=== PATIENT | female | born 1995 | race Caucasian/White ===

== ENCOUNTER 2017-12-13 10:30 | Inpatient (IN) | payer BC, MEDICAID, SELFPAY ==
[2017-12-13] VITALS (12 sets, daily range): BP systolic 120–148; BP diastolic 74–100; PULSE 71–94; RESP 14–18; TEMP 36.6–37.3; O2SAT 96–99; BMI 29.0
[2017-12-13] MEDS: Lactated Ringers 1,000 ML 50 ML IV ×2 (11:26→14:09)
[2017-12-13 11:39] LABS: Hematocrit 37.4 % (37-47); Hemoglobin 12.9 g/dl (12.0-15.0); Mean Corp Hgb Conc 34.5 g/gl (32-36); Mean Corpuscular Hgb 32.3 pg (27.0-32.0); Mean Corpuscular Volume 93.7 fL (81-99); Mean Platelet Vol. 11.4 fl (6.2-12.0); Platelet Count 149 K/mm3 (150-450); RBC Distribution Width CV 15.3 % (11.6-14.6); RBC Distribution Width SD 50.8 fl (35.1-43.9); Red Blood Count 3.99 M/mm3 (4.2-5.4); White Blood Count 8.5 K/mm3 (4.4-11.0)
[2017-12-13 11:40] LABS: Scan Indicated on CBC? Y/N NO
[2017-12-13] MEDS: Oxytocin 30 units/NS 500 ml 30 UNITS/500 ML IV.SOLN IV (12:48)
--- NOTE | 2017-12-13 13:11 | PCM.HP.OB ---
History Date of Admission: 12/13/17 Final JOSE DANIEL: 12/09/17 Final JOSE DANIEL Source: US <20 weeks Gestational age: 40 Weeks and 4 Days History of this : This is a 22 year-old, at 40.4 weeks gestational age presented to [facility] office this morning c/o no movement since awaking. pt reports no vaginal bleeding but reports woke up with damp underwear and having yellow discharge. on NST in office FHR 155-160 mod variability with no decels and no accels. Speculum exam with Grossly ruptured membranes and thick meconium noted. pt was counseled on IOL- consented and was told to go directly to [facility]. Allergies No Known Allergies Allergy (Verified 12/13/17 11:44) Home Medications: Home Medications Sertraline HCl [Zoloft] 50 mg PO DAILY 05/24/17 Ferrous Sulfate [Iron] 325 mg PO DAILY 12/13/17 Omeprazole Magnesium [Prilosec Otc] 20 mg PO DAILY 12/13/17 Smoking Status: Former smoker Alcohol: None Number of Fetus(es): 1 Heart Tracin mod to min variability - no accels, occasional variable decleration- CAT 2 FHR TRACING TOCO Analysis: occasional History Past Pregnancies: Past Pregnancies Delivery Date Name GA/Weeks Outcome Route Weight Infant Gender Labor Length Anesthesia Delivery Location Provider FOB Review of Systems Constitutional: Denies: Chills, Fever Gastrointestinal: Denies: Abdominal Pain Physical Exam General: Alert, Oriented x3 Abdomen: Soft, Non Tender, Gravid Neurological: Cranial nerves II-XII grossly intact MANAGER INFRASTRUCTURE: Normal external genitalia Estimated gestational size: Appropriate for gestational size Presentation: Cephalic Cervix Dilation (cm): 2.5 Station: -2 Effacement (%): 90 Assessment/Plan This is a 22 year-old, @ 40.4 weeks gestational age with Category 2 FHR, SROM at home- thick meconium and decreased FM 1) admit to L&D 2) Internal monitors placed 3) Pitocin- for PROGRAM DIRECTOR/MORNING SHOW HOST- if fetus does not tolerate i have reviewed possible need for primary cs 4) GBS + on PCN for prophylaxis 5) epidural if requested
--- NOTE | 2017-12-13 13:16 | HP.PCM_ITS ---
History Date of Admission: 12/13/17 Final JOSE DANIEL: 12/09/17 Final JOSE DANIEL Source: US <20 weeks Gestational age: 40 Weeks and 4 Days History of this : This is a 22 year-old, at 40.4 weeks gestational age presented to [facility] office this morning c/o no movement since awaking. pt reports no vaginal bleeding but reports woke up with damp underwear and having yellow discharge. on NST in office FHR 155-160 mod variability with no decels and no accels. Speculum exam with Grossly ruptured membranes and thick meconium noted. pt was counseled on IOL- consented and was told to go directly to [facility]. Allergies No Known Allergies Allergy (Verified 12/13/17 11:44) Home Medications: Home Medications Sertraline HCl [Zoloft] 50 mg PO DAILY 05/24/17 Ferrous Sulfate [Iron] 325 mg PO DAILY 12/13/17 Omeprazole Magnesium [Prilosec Otc] 20 mg PO DAILY 12/13/17 Smoking Status: Former smoker Alcohol: None Number of Fetus(es): 1 Heart Tracin mod to min variability - no accels, occasional variable decleration- CAT 2 FHR TRACING TOCO Analysis: occasional History Past Pregnancies: Past Pregnancies Delivery Date Name GA/Weeks Outcome Route Weight Infant Gender Labor Length Anesthesia Delivery Location Provider FOB Review of Systems Constitutional: Denies: Chills, Fever Gastrointestinal: Denies: Abdominal Pain Physical Exam General: Alert, Oriented x3 Abdomen: Soft, Non Tender, Gravid Neurological: Cranial nerves II-XII grossly intact CLIENT SUPPORT MANAGER: Normal external genitalia Estimated gestational size: Appropriate for gestational size Presentation: Cephalic Cervix Dilation (cm): 2.5 Station: -2 Effacement (%): 90 Assessment/Plan This is a 22 year-old, @ 40.4 weeks gestational age with Category 2 FHR, SROM at home- thick meconium and decreased FM 1) admit to L&D 2) Internal monitors placed 3) Pitocin- for RESPIRATORY MANAGER- if fetus does not tolerate i have reviewed possible need for primary cs 4) GBS + on PCN for prophylaxis 5) epidural if requested
[2017-12-13] MEDS: fentaNYL-bupivacaine (epidural) 100 ML BAG EPIDURAL (14:11)
[2017-12-13] MEDS: Ondansetron 4 MG/2 ML Vial IV (16:32)
[2017-12-13 16:34] LABS: Protein, Urine (Random) 82.5 mg/dL (<11.9); Protein:Creat Ratio 955 mg/g CRE (0-200)
[2017-12-13 16:38] LABS: AST(SGOT) 18 U/L (15-37); Alanine Aminotransfer ALT/SGPT 11 U/L (13-56); Creatinine, Serum 0.52 mg/dL (0.55-1.02); EST Glomerular Filtration Rate 153 mL/min (>60); Est Glom Filt Rate - Afr Amer 185 mL/min (>60); Estimated Creatinine Clearance 162.23 ml/min; Uric Acid 2.9 mg/dL (2.6-6.0)
[2017-12-13 16:44] LABS: Hemoglobin 12.5 g/dl (12.0-15.0); Mean Corp Hgb Conc 32.9 g/gl (32-36); Mean Corpuscular Volume 94.3 fL (81-99); Mean Platelet Vol. 12.2 fl (6.2-12.0); Platelet Count 151 K/mm3 (150-450); RBC Distribution Width CV 15.4 % (11.6-14.6); RBC Distribution Width SD 53.6 fl (35.1-43.9); Red Blood Count 4.03 M/mm3 (4.2-5.4); White Blood Count 10.8 K/mm3 (4.4-11.0)
[2017-12-13 16:46] LABS: Scan Indicated on CBC? Y/N NO
[2017-12-13 17:18] LABS: International Normalized Ratio 0.9; Prothrombin Time (Protime)PT. 12.3 SECONDS (11.7-14.9)
[2017-12-13 17:19] LABS: Partial Thromboplast Time 28.1 Seconds (24.1-36.2)
--- NOTE | 2017-12-13 17:30 | PCM.PN.BLA ---
Progress Note pt evaluated at bedside- VE: 4-5/90/-2 , PRE E LABS reviewed- elevated Prot/creat ratio and elevated BPs since arrival- FHR persistent category 2 tracing with minimal variability, occasional variable decelerations. unable to keep pitocin on- pt and were counseled on primary cs risks and agree to proceed. reviewed that with persistent category 2 tracing despite maternal position changes, oxygen and being remote from delivery i feel this is in her best interest at this time. OR team notified.
--- NOTE | 2017-12-13 17:34 | PN_ITS ---
Progress Note pt evaluated at bedside- VE: 4-5/90/-2 , PRE E LABS reviewed- elevated Prot/ creat ratio and elevated BPs since arrival- FHR persistent category 2 tracing with minimal variability, occasional variable decelerations. unable to keep pitocin on- pt and were counseled on primary cs risks and agree to proceed. reviewed that with persistent category 2 tracing despite maternal position changes, oxygen and being remote from delivery i feel this is in her best interest at this time. OR team notified.
[2017-12-13] MEDS: Sodium Citrate/Citric Acid 30 ML UDC PO (17:35)
[2017-12-13] MEDS: Cefazolin 2 GM in 0.9% Normal Saline 100 ML IV (17:35)
--- NOTE | 2017-12-13 17:38 | PCM.OB.CSR ---
Delivery Classification: LAMONT Final JOSE DANIEL: 12/09/17 Gestational age: 40 Weeks and 4 Days Indications: Persistent category 2 FHR tracing, Preeclampsia without severe features, Meconium fluid, Post EDC, remote from delivery Indications for : Nonreassuring Status Description of Procedure: Surgeon: Dr. Janis Ahn Tower Director: darinel GARCIA Intraop Stat assistance: Dr. Alison Choi Preoperative diagnosis: Persistent Category 2 FHR, preeclampsia without severe features, Meconium, Post EDC- remote from delivery Postoperative diagnosis: same, Live female infant procedure performed: Primary Low Transverse C/S Findings: Primary c/s performed- live female infant born with apgars 2, 6, 8-tight body cord around abdomen x 2 - incision made at 1755 and infant born at 1803. Anesthesia: Epidural converted to General Complications: infant verted to transverse back down during delivery- see note below. Estimated blood loss:800 Implantable devices: None Operative note: After informed consent was obtained the patient was taken the operating room. She was then placed in the supine position. She was prepped and draped in the normal sterile fashion. Epidural Anesthesia was found to be adequate. At this time a Pfannenstiel skin incision was made with a knife was carried down to the underlying layer of the fascia. The fascial incision was then extended laterally using curved Moser scissor. Attention was then turned to the superior aspect of the fascial edge was grasped with 2 straight Andrea clamps tented up and the rectus muscle dissected off sharply using curved Moser scissor. Attention was then turned to the inferior aspect where again Andrea clamps were placed on fascia and the rectus muscles were tented up and the fascia was dissected off sharply using the curved Moser scissor. Rectus muscles were then in the midline bluntly and peritoneum was entered bluntly. Gentle opposing traction was placed. At this time the vesicouterine peritoneum was identified. Scalpel was used to make a uterine incision in a low transverse fashion. The uterus was then entered bluntly gentle opposing traction was placed to extend this incision. Infant head was brought to uterine incision but difficult to deliver- pt not relaxed and was in pain during this time- general anesthesia was initiated- at this time uterine incision was extended and the rectus muscle was cut due how tight she was - i released pressure on head to be able to better extend incision when i did this the infant rotated to transverse back down with head in maternal right. At this time i was unable to get presenting part for delivery- left shoulder was palpable- unable to vert to breach either- emergent assistance was called to help with delivery- Dr. Choi entered the room 1800- again uterine incision was extended cephalad along with tight rectus muscles. 's head was brought back to vertex with flexion and gentle pressure. it was then delivered through uterine incision. upon extending incisions was lacerated on left upper arm- superficial. Cord was clamped and cut was handed to the waiting nursery team. The Placenta was removed from the uterus. The uterus was then removed from the abdominal cavity. The uterus was cleared of all clots and debris using a lap. There was NO SIGNIFICANT EXTENSION OF THE UTERINE INCISION CEPHALAD noted during repair. At this time the uterine incision was reapproximated using #1 Vicryl in a running locked fashion followed by a second layer using #1 vicryl. Hemostasis was appreciated. Posterior cul-de-sac was then cleared of all clots and debris. Uterus was placed back in the abdominal cavity. Gutters were cleared of all clots and debris. Uterine incision was reevaluated and noted to be of excellent hemostasis. At this time the peritoneum was grasped with Kellys reapproximated using #2 Vicryl suture in a running fashion. Ligated rectus Muscles then reapproximated using #2 Vicryl in a interrupted mattress suture fashion. Unable to reapproximate all rectus muscles due to how deperated they were midline. Fascia was then reapproximated using #1 Vicryl in a running fashion. Subcu layer was reapproximated with #2 0 plain gut suture in an interrupted fashion. Subcu layer was closed using 4-0 vicryl on a Charles needle in a subcu fashion. Dry sterile dressing was applied. Instrument lap needle count correct ?2. Anticipated normal postoperative. THIS PATIENT IS STILL A CANDIDATE FOR TOLAC with future pregnancies if desired. Amniotic Membrane Rupture Type: Spontaneous Amniotic Fluid Description: Thick meconium Placenta Disposition: Routine to Lab Specimen(s) sent to pathology: placenta Drain: García to straight drain Cord Entanglement: - - around BODY (abdomen) tight x 2 Nuchal Cord Compression: With compression Cord Vessel Description: 3 Vessels Esitmated Blood Loss (ml): 800 Infant Gender: Female (1 minute): 2 (5 minute): 6 - 10min 8 Delayed cord clamping: No Pre-op Antibiotic Given: Ancef 2 grams IV x1 Pt instructed on risks of surgery: Bleeding, Anesthesia Risks, Infection, Injury to surrounding structure(s) including bowel and bladder - Admit VTE Documentation VTE Present on Admission: Yes VTE Mechan Device Prophylaxis: SCD's VTE Pharm Prophylaxis ordered?: Yes
--- NOTE | 2017-12-13 18:00 | PLAC_PTH ---
PATIENT: LORENA CARRASCO LOC: WP U#:[id number] AGE/SX: 22/F ROOM: WP009 RE12/13/[address]: Dr. Janis Ahn, MDDOB: 1995 BED: 1 DIS: 12/16/2017 SPEC #: [id number] RECD: 12/13/17 22:56 STATUS: SCOTT RENETTA #: [id number] GERI: 12/13/17 18:[address]: Janis Ahn DEPT: SURGICAL PATHOLOGY RECD BY: Vini Montero ENTERED: 12/14/17 07:04 SP TYPE: PLACENTA OTHR DR: Dr. Ever Gonzáles MD Tissues: Placenta, NOS Procedures: Surgery Specimen Level V HEADER OPERATION: Primary section PRE-OP DIAGNOSIS: Post term ? persistent category 2 tracing; preeclampsia TISSUE SUBMITTED: Placenta MICROSCOPIC DIAGNOSIS Placenta: Placental disc - third trimester placenta (583 gm). - Focal chronic villitis of unknown etiology. - Focal area of intraparenchymal hemorrhage (0.7 cm in greatest dimension). - Focal increased perivillous and intravillous fibrin deposition. Membranes ? pigment laden macrophages consistent with meconium staining. - Mild chronic inflammation. See comment. Umbilical cord - three blood vessels and no pathologic diagnosis. SJ:gurpreet 12/16/17 COMMENT The significance of chronic inflammation in the membranes is not clear. MICROSCOPIC DESCRIPTION Slides are reviewed. GROSS DESCRIPTION SPECIMEN: PLACENTA / CLINICAL INFORMATION: A. Weight: 3.603 kg B. Gestational Age: 40 weeks C. Sex: Female PLACENTAL WEIGHT (POST FIXATION): 583 gm PLACENTAL DIMENSIONS: 20 x 18 x 3 cm PLACENTAL SHAPE: Usual ovoid PLACENTAL WEIGHT FOR GESTATIONAL AGE: Within 10-99th percentile MEMBRANES ? Present. Partly fragmented A. Insertion: Marginal B. Site of rupture from edge: At edge of placental disc C. Color of membrane: Ruano-greenish consistent with meconium staining. D. Abnormalities: None UMBILICAL CORD - Present A. Color: Ruano-haile B. Insertion: Central C. Length: 45 cm D. Diameter: 1 cm E. Number of vessels: Three F. Abnormalities: None PLACENTAL DISC - Present A. Color of surface: Ruano-haile B. surface abnormalities: None C. Maternal cotyledons: Intact with minimal tears D. Attached retro placental clot: No clot E. Cut surface: Dark red and spongy F. Lesions: Sections reveal a small ruano, indurated lesion measuring 0.7 cm in greatest dimension. G. Separate clot: Absent SECTIONS SUBMITTED: 1. Membrane roll 2. Cord, maternal end 3. Cord, end 4. Placental disc, and maternal surfaces 5. Placental disc, and maternal surfaces 6. Placental disc, and maternal surfaces, lesion SJ:gurpreet 12/15/17 TC:5 CPT: 48223
[2017-12-13] MEDS: Oxytocin 30 units/NS 500 ml 30 UNITS/500 ML IV.SOLN 167 UNITS IV (18:05)
[2017-12-13] MEDS: Lactated Ringers 1,000 ML 100 ML IV (19:00)
[2017-12-13] MEDS: HYDROmorphone 1 MG/ML Syringe IV ×2 (20:38→22:53)
[2017-12-14] MEDS: Ketorolac 30 MG/ML Syringe IV ×4 (00:58→18:31)
[2017-12-14 01:22] VITALS: BP 137/92; PULSE 68; RESP 16; TEMP 37.3; O2SAT 97
[2017-12-14] MEDS: HYDROmorphone 1 MG/ML Syringe IV ×2 (01:32→10:10)
[2017-12-14] MEDS: Cefazolin 2 GM in 0.9% Normal Saline 100 ML IV (01:36)
[2017-12-14 03:20] VITALS: BP 114/77; PULSE 78; RESP 18; TEMP 37.1; O2SAT 99
[2017-12-14 04:56] LABS: Hematocrit 32.7 % (37-47); Hemoglobin 11.3 g/dl (12.0-15.0); Mean Corp Hgb Conc 34.6 g/gl (32-36); Mean Corpuscular Hgb 32.7 pg (27.0-32.0); Mean Corpuscular Volume 94.5 fL (81-99); Mean Platelet Vol. 11.2 fl (6.2-12.0); Platelet Count 142 K/mm3 (150-450); RBC Distribution Width CV 15.2 % (11.6-14.6); RBC Distribution Width SD 50.3 fl (35.1-43.9); Red Blood Count 3.46 M/mm3 (4.2-5.4); Scan Indicated on CBC? Y/N NO; White Blood Count 11.2 K/mm3 (4.4-11.0)
[2017-12-14] MEDS: Lactated Ringers 1,000 ML 100 ML IV (05:24)
[2017-12-14] MEDS: Enoxaparin 40 MG/0.4 ML Syringe SC (06:02)
--- NOTE | 2017-12-14 07:57 | PCM.PN.OB ---
Subjective: pt seen at bedside, doing well. pt reports pain over incision site. denies N/V. Is not passing flatus but tolerated some regular food last night. Jackson is draining well. Baby in [facility] for blood sugar monitoring. - Physical Exam General: Alert, Oriented x3 Abdomen: Soft, Non-Distended, - - funuds firm. dressing intact- small amout of old blood on right side of dressing- outlined in pen with no new active bleeding appreciated. Extremities: No Calf Tenderness Vital Signs Temp Pulse Resp BP Pulse Ox 98.7 F 78 18 114/77 99 12/14/17 03:20 12/14/17 03:20 12/14/17 03:20 12/14/17 03:20 12/14/17 03:20 Oxygen Delivery Method Room Air Weight: 83.9 kg Body Mass Index (BMI) 29.0 Intake and Output for Last 24 Hours 12/12/17 12/13/17 12/14/17 23:59 23:59 23:59 Intake Total 2900 / 2900 600 / 600 Output Total 825 / 825 Balance 2075 / 2075 600 / 600 Laboratory Tests Past 24 Hrs 12/13/17 12/13/17 12/13/17 11:26 11:26 15:48 WBC 8.5 10.8 RBC 3.99 L 4.03 L Hgb 12.9 12.5 Hct 37.4 38.0 MCV 93.7 94.3 MCH 32.3 H 31.0 MCHC 34.5 32.9 RDW 15.3 H 15.4 H RDW Differential 50.8 H 53.6 H Plt Count 149 L 151 MPV 11.4 12.2 H PT INR APTT Creatinine Estim Creat Clear Calc Est GFR (MDRD) Af Amer Est GFR (MDRD) Non-Af Uric Acid AST ALT U Random Total Protein Urine Creatinine Protein/Creatinin Ratio Blood Type O NEGATIVE Antibody Screen NEGATIVE 12/13/17 12/13/17 12/13/17 15:48 15:48 15:48 WBC RBC Hgb Hct MCV MCH MCHC RDW RDW Differential Plt Count MPV PT 12.3 INR 0.9 APTT 28.1 Creatinine 0.52 L Estim Creat Clear Calc 162.23 Est GFR (MDRD) Af Amer 185 Est GFR (MDRD) Non-Af 153 Uric Acid 2.9 AST 18 ALT 11 L U Random Total Protein 82.5 H Urine Creatinine 86.40 Protein/Creatinin Ratio 955 H Blood Type Antibody Screen 12/14/17 04:40 WBC 11.2 H RBC 3.46 L Hgb 11.3 L Hct 32.7 L MCV 94.5 MCH 32.7 H MCHC 34.6 RDW 15.2 H RDW Differential 50.3 H Plt Count 142 L MPV 11.2 PT INR APTT Creatinine Estim Creat Clear Calc Est GFR (MDRD) Af Amer Est GFR (MDRD) Non-Af Uric Acid AST ALT U Random Total Protein Urine Creatinine Protein/Creatinin Ratio Blood Type Antibody Screen Medical Necessity - Tobacco Use Smoking Status: Former smoker Assessment/Plan 22yo POD#1 s/p LAMONT c/s- preeclampsisa without severe features, persistent category 2 FHR tracing, Meconium, POST EDC 1) c/s was reviewed with patient and - need for general anesthesia 2) PEDS monitoring in [facility]- will make further recommendations today 3) Pain mgmt 4) dc jackson later today 5) labs stable 6) monitor BP- stable at this time
[2017-12-14 10:00] VITALS: BP 123/78; PULSE 67; RESP 18; TEMP 37
[2017-12-14] MEDS: 0.9% Saline Lock 10 ML Syringe IV ×2 (11:48→18:31)
[2017-12-14 12:00] VITALS: BP 118/76; PULSE 77; RESP 16; TEMP 36.3
[2017-12-14] MEDS: Acetaminophen 500 MG Tablet 1000 MG PO (14:35)
[2017-12-14 15:50] VITALS: BP 118/74; PULSE 70; RESP 16; TEMP 36.3; O2SAT 100
[2017-12-14] MEDS: oxyCODONE 5 MG Tablet PO ×2 (16:48→22:33)
[2017-12-14] MEDS: Sertraline 100 MG Tablet PO (21:59)
[2017-12-14 22:00] VITALS: BP 121/69; PULSE 87; RESP 16; TEMP 36.6; O2SAT 98
[2017-12-15] VITALS (7 sets, daily range): BP systolic 119–130; BP diastolic 71–83; PULSE 70–101; RESP 16–20; TEMP 36.2–36.8; O2SAT 96–99
[2017-12-15] MEDS: Ibuprofen 600 MG Tablet PO ×2 (00:28→07:48)
[2017-12-15] MEDS: Enoxaparin 40 MG/0.4 ML Syringe SC (06:07)
--- NOTE | 2017-12-15 08:18 | PCM.PN.OB ---
Subjective: pt seen at bedside, doing well. pt reports good pain control. lochia mild. Passing flatus. Feels congested with URI - Physical Exam General: Alert, Oriented x3 Lungs: Wheezes Abdomen: Soft, Non-Distended, Passing Flatus, - - fundus firm, dressing intact- no new saturated areas Extremities: No Calf Tenderness Vital Signs Temp Pulse Resp BP Pulse Ox 97.1 F L 81 16 124/83 H 97 12/15/17 08:00 12/15/17 08:00 12/15/17 08:00 12/15/17 08:00 12/15/17 08:00 Oxygen Delivery Method Room Air Weight: 83.9 kg Body Mass Index (BMI) 29.0 Intake and Output for Last 24 Hours 12/13/17 12/14/17 12/15/17 23:59 23:59 23:59 Intake Total 2900 / 2900 600 / 600 Output Total 825 / 825 2100 / 2100 300 / 300 Balance 2074 / 2074 -1500 / -1500 -300 / -300 Medical Necessity - Tobacco Use Smoking Status: Former smoker Assessment/Plan 22 yo POD#2, doing well routine care pain mgmt ambulation possible dc tomorrow Albuterol aerosol treatment
--- NOTE | 2017-12-15 08:27 | DCINST_ITS ---
Discharge Diet: No Restrictions Discharge Activity: Return to Normal Activity, May Not Drive - for 2 weeks, May not drive while taking narcotic pain medications., May Shower, May Take a Tub Bath - in 7 days. May resume sexual activity in: 4-6 weeks Lifting Restrictions: 20 pounds Additional Activity Instructions:: Nothing in the vagina for 4-6 weeks. You may return to work/school in 6 weeks. Call your doctor if your incision/area has: Continuous Slow Oozing, Sudden Increased Bleeding, Increased Pain/ Swelling, Increased Redness, Foul Smelling Discharge Call your doctor if you observe: Fever of 101 or Higher, Using more than one pad per hour - for 2 hours Suture Line Care: Avoid Pulling/Pushing, Avoid Pinching/Bending Cleanse incision/area with: Keep Dressing Clean & Dry Additional Instructions: If you experience any of the following, contact your healthcare provider. * Bleeding that soaks a pad every hour for 2 hours * Fever 100.4 or higher * Unrelieved incision or abdominal pain * Swelling, redness, discharge or bleeding from your incision or episiotomy site * Your incision begins to separate * Problems urinating (including inability to urinate or burning while urinating) . * Visual changes * Severe headache * Flu-like symptoms * Pain or redness in one of both of your breasts * Pain, warmth, tenderness or swelling in your legs, especially the calf area * Frequent nausea and vomiting * Symptoms of depression or anxiety If you experience any of the following, call 911 or go to the nearest Emergency Room. * Chest pain * Problems breathing * Seizure activity * Partial or complete paralysis of a body part, slurred speech, weakness or drooping of the face, or a sudden inability to walk or hold your balance Allergies/Adverse Reactions: Allergies No Known Allergies Allergy (Verified 12/13/17 11:44) Medications to take at Discharge Sertraline HCl [Zoloft] 50 mg PO DAILY 05/24/17 Ferrous Sulfate [Iron] 325 mg PO DAILY 12/13/17 Ibuprofen [Motrin] 800 mg PO Q8H PRN PRN #30 tab 12/15/17 Oxycodone HCl/Acetaminophen [Percocet 5/325] 1 tablet PO Q6H PRN PRN 7 Days #28 tablet 12/15/17 Senna/Docusate Sodium [Senokot-S] 1 tab PO DAILY PRN #30 tab 12/15/17 SimETHICONE [Mylicon] 80 mg PO PCHS PRN #30 tab 12/15/17 The following prescriptions were given: Oxycodone HCl/Acetaminophen [Percocet 5/325] 1 tablet PO Q6H PRN PRN 7 Days #28 tablet PRN Reason: Pain Ibuprofen [Motrin] 800 mg PO Q8H PRN PRN #30 tab PRN Reason: Pain Senna/Docusate Sodium [Senokot-S] 1 tab PO DAILY PRN #30 tab PRN Reason: Constipation SimETHICONE [Mylicon] 80 mg PO PCHS PRN #30 tab PRN Reason: Indigestion/stomach pain Follow-Up: Call to make an appointment with your doctor for an incision check in 1-2 weeks. You will also need a 6 week post- follow up appointment. Test results from this visit will be discussed in further detail at your follow- up appointment, if applicable. Please Follow Up With: Janis Ahn MD - Call to make an appointment for an incision check in 1-2 [phone] When: You will need a post- check in 6 weeks. Primary Care Physician: Ever Gonzáles MD [Primary Care Provider] -
[2017-12-15] MEDS: Albuterol 2.5 MG/3 ML VIAL.NEB. INHALATION ×3 (08:30→22:22)
[2017-12-15] MEDS: oxyCODONE 5 MG Tablet PO ×2 (13:58→18:33)
[2017-12-15] MEDS: Sertraline 100 MG Tablet PO (21:14)
--- NOTE | 2017-12-15 22:24 | CPS ---
pt accidently swallowed sputum, but did have a strong loose cough
[2017-12-16] MEDS: oxyCODONE 5 MG Tablet PO ×3 (01:13→11:04)
[2017-12-16 02:00] VITALS: BP 122/78; PULSE 83; RESP 18; TEMP 37.2; O2SAT 98
[2017-12-16] MEDS: Enoxaparin 40 MG/0.4 ML Syringe SC (06:17)
--- NOTE | 2017-12-16 08:02 | PN.OBGYN_ITS ---
Subjective: pt seen at bedside, doing well. pt reports some pulling and stinging sensation when walking on right side of incision site. pt reports was delayed in taking pain medication. baby still in [facility] for blood sugars. Pt reports tolerating regular diet, passing flatus - Physical Exam General: Alert, Oriented x3 Abdomen: Soft, Non-Distended, Passing Flatus, - - appropriately tender Extremities: No Calf Tenderness Vital Signs Temp Pulse Resp BP Pulse Ox 98.9 F 83 18 122/78 H 98 12/16/17 02:00 12/16/17 02:00 12/16/17 02:00 12/16/17 02:00 12/16/17 02:00 Oxygen Delivery Method Room Air Weight: 83.9 kg Body Mass Index (BMI) 29.0 Intake and Output for Last 24 Hours 12/14/17 12/15/17 12/16/17 23:59 23:59 23:59 Intake Total 600 / 600 Output Total 2100 / 2100 300 / 300 Balance -1500 / -1500 -300 / -300 Medical Necessity - Tobacco Use Smoking Status: Former smoker Assessment/Plan POD#3, doing well routine care pain mgmt dc home- will notify patient if room becomes available for hotel due to baby in [facility]
--- NOTE | 2017-12-16 08:04 | PCM.DC.BLA ---
Discharge Summary Date of Admission: 12/13/17 Date of Discharge: 12/16/17 Summary: pt was admitted for IOL due to POST EDC, SROM at home with meconium and Persistent category 2 FHR tracing, preeclampsia. - pt was remote from delivery with persistent category 2 tracing and preeclampsia without severe features- decision for primary Low transverse c/s - performed - live female infant born see OP not for details. in [facility] due to low blood sugar. pt was discharged home on POD#3 in stable condition.
[2017-12-16] MEDS: Senna/Docusate Sodium 1 Tablet PO (09:25)
[2017-12-16 09:35] VITALS: PULSE 88; RESP 16
[2017-12-16] MEDS: Albuterol 2.5 MG/3 ML VIAL.NEB. INHALATION (09:35)
[2017-12-16 09:36] VITALS: RESP 20
[2017-12-16 09:53] VITALS: BP 124/74; PULSE 87; RESP 20; TEMP 36.6; O2SAT 96
--- NOTE | 2017-12-16 10:25 | NURSING ---
pt is concerned that her oxyir Rx is at [facility] and she is going to [facility] with the baby today. Called [facility] pharmacy and The Pharmacist Dago called the [facility] to see if the Rx can get transfered to [facility] and was told it cannot. Left a message with Niki Sanders's nurse to rewrite the oxyir and that the pt has wheezing in her lungs and that the pt is requesting an inhaler. Talked to pt in [facility] and she started crying stating that she is trying to get a family member come pick her up so she can go to [facility] with the baby. Her sister is planning to come in. Asked Martita Phoenix provider network manager of [facility] to talk with the pt about what to expect with the baby being transferred
--- NOTE | 2017-12-16 10:53 | NURSING ---
Pt states that she feels better after talking to the SC[facility] manager [employer]. The pt's sister arrived and took the pt's belongings to the car. The oxyir and inhaler prescriptions are at the [facility] retail pharmacy
[2017-12-16] MEDS: Ibuprofen 600 MG Tablet PO (11:03)
--- NOTE | 2017-12-16 11:33 | NURSING ---
pt verbalizes understanding of dc instructions and understands when to call provider if needed. She stated that the physician told her to remove the mepilex at 7 days post-op and verbalizes that she has a followup appointment on wednesday 12/20
[2017-12-16 15:39] LABS: Pathology Specimen OB SEE PATHOLOGY REPORT
== END 2017-12-16 11:40 | disposition home or self-care (01) | DRG 766 ==
PROVIDERS: Admitting Provider Obstetrics & Gynecology; Family Provider Family Medicine; PCP Family Medicine; Visit Provider Obstetrics & Gynecology
DX: O14.94 Unspecified pre-eclampsia, complicating childbirth (principal); O48.0 Post-term pregnancy; Z3A.40 40 weeks gestation of pregnancy; Z37.0 Single live birth; O77.0 Labor and delivery complicated by meconium in amniotic fluid; O36.8130 Decreased fetal movements, third trimester, not applicable or unspecified; Z87.891 Personal history of nicotine dependence; O69.2XX0 Labor and delivery complicated by other cord entanglement, with compression, not applicable or unspecified; O64.8XX0 Obstructed labor due to other malposition and malpresentation, not applicable or unspecified; O99.820 Streptococcus B carrier state complicating pregnancy
CPT/HCPCS: 59025; 59050; 82565; 82570; 84156; 84450; 84460; 84550; 85027; 85610; 85730; 86850; 86900; 88307; 94640; 99218; J7120; A4216; G0378; J2405

== ENCOUNTER → 2020-05-29 | Outpatient (CLI) | payer BC, MEDICAID, SELFPAY ==
[2017-12-13 11:49] VITALS: BMI 29.0
[2020-05-29 12:54] LABS: D-Dimer Quantitative (DVT/PE) 14.81 FEU/ug/m (0.27-0.49)
== END | disposition home or self-care (01) ==
LOC: LABSPEC 12:08
PROVIDERS: PCP Internal Medicine; Referring Provider Nurse Practitioner; Visit Provider Nurse Practitioner
DX: R07.9 Chest pain, unspecified (principal); R00.2 Palpitations; R06.02 Shortness of breath
CPT/HCPCS: 85379

== ENCOUNTER → 2020-05-31 12:55 | Outpatient (CLI) | payer BC, MEDICAID, SELFPAY ==
--- NOTE | 2020-05-31 13:02 | ECHOD_ITS ---
Reason For Study: CHEST PAIN, PE ASSOC W/COVID Procedure This was a 2D Doppler, Color Flow transthoracic echocardiogram. Exam performed in department. Left Ventricle Normal LV size. Left ventricular systolic function is normal. The estimated ejection fraction is 55 %. Normal diastology for age. No regional wall motion abnormalities noted. Right Ventricle Normal RV size. Normal systolic function. Atria Normal left atrium. Normal right atrium. Mitral Valve Normal mitral valve. Tricuspid Valve Normal tricuspid valve. Unable to estimate RV systolic pressure due to inadequate jet, pulmonary artery pressure probably normal. Aortic Valve Trisinus/trileaflet aortic valve. Pulmonic Valve Normal pulmonic valve. Great Vessels Normal aortic root. The pulmonary artery is normal size. Normal inferior vena cava. Pericardium/Pleural No pericardial effusion. MMode/2D Measurements & Calculations LVIDd: 5.0 cm IVSd: 0.85 cm LAV(MOD-bp): 40.6 ml LVIDs: 3.2 cm LVPWd: 0.93 cm LAV(MOD-bp) Indexed: 23.1 ml/m2 RVDd: 3.4 cm FS: 35.9 % LAV(MOD-sp2): 49.5 ml LAV(MOD-sp4): 31.3 ml LA dimension(2D): 3.3 cm LA A4 area: 14.0 cm2 RA A4 area: 12.0 cm2 Time Measurements MV dec time: 0.20 sec Doppler Measurements & Calculations MV E max justin: 76.4 cm/sec Lat Peak E' Justin: 16.4 cm/sec Med Peak E' Justin: 11.5 cm/sec MV A max justin: 57.8 cm/sec E/E' lat: 4.6 E/E' med: 6.6 MV E/A: 1.3 Ao V2 max: 120.7 cm/sec LV V1 max: 116.0 cm/sec PA V2 max: 87.5 cm/sec Ao max P.8 mmHg LV V1 max P.4 mmHg Interpretation Summary Normal LV size. Left ventricular systolic function is normal. The estimated ejection fraction is 55 %. Structurally normal valves. Ordering Physician: Cassandra Leos Referring Physician: Luba Yanez Performed By: Nithya Zuniga, SRUJIT, RVT
== END ==
PROVIDERS: PCP Internal Medicine; Referring Provider Nurse Practitioner; Visit Provider Nurse Practitioner
DX: U07.1 COVID-19 (principal); R07.9 Chest pain, unspecified; I26.99 Other pulmonary embolism without acute cor pulmonale
CPT/HCPCS: 93306

== ENCOUNTER 2020-07-10 17:58 | Emergency (ER) | payer BC, MEDICAID, SELFPAY ==
[2020-07-10 17:59] VITALS: BP 136/90; PULSE 88; RESP 16; TEMP 35.8; O2SAT 98; BMI 22.7
--- NOTE | 2020-07-10 18:16 | EKG12_ITS ---
Test Reason : CP Blood Pressure : / mmHG Vent. Rate : 069 BPM Atrial Rate : 069 BPM P-R Int : 132 ms QRS Dur : 082 ms QT Int : 370 ms P-R-T Axes : -07 048 044 degrees QTc Int : 396 ms Normal sinus rhythm Normal ECG Confirmed by FLORENCE DALY, LATISHA ([id number]), clinical editor KEATON KEY ([id number]) on 07/15/2020 2:19:54 PM Referred By: MATIAS Confirmed By:LATISHA HENRIQUEZ MD
--- NOTE | 2020-07-10 18:35 | RAD_ITS ---
STUDY: X-RAY CHEST REASON FOR EXAM: Female, 24 years old. chest pain TECHNIQUE: Single frontal view of the chest. COMPARISON: None. FINDINGS: Cardiac silhouette unremarkable. Pulmonary vascularity unremarkable. Aorta unremarkable. No focal airspace opacities. No pleural effusions. Upper abdomen unremarkable. Osseous structures intact. No pneumothorax. RAD/Chest 1 View (Portable) IMPRESSION: No acute cardiopulmonary process identified. Electronically Signed: Samuel Gee MD at 19:04 EST Tel , Service support ,
--- NOTE | 2020-07-10 19:01 | CT_ITS ---
STUDY: CTA CHEST REASON FOR EXAM: Female, 24 years old. r/o pe RADIATION DOSAGE (If Supplied By Facility): CTDIvol = ( 10.315 ) mGy, DLP = ( 314.60 ) mGycm TECHNIQUE: The examination was performed with the intravenous administration of IV 100mL Isovue-300. Post-processing of the angiographic images was performed, with multiplanar reformation and 3D reconstruction. Individualized dose optimization techniques were used for this CT. COMPARISON: None. FINDINGS: Normal enhancement of the main pulmonary artery and right and left pulmonary arteries. Normal enhancement of the bilateral peripheral pulmonary arteries. There is no demonstrated pulmonary embolism. Normal thoracic aorta and visualized great vessels. There is no demonstrated aortic dissection. Normal heart and pericardium. Normal mediastinum. Normal hilar regions. Normal visualized trachea and bronchi. The lungs are well expanded. Normal pulmonary parenchyma. Normal pleura. Normal chest wall structures. Normal osseous structures. Normal visualized upper abdomen. CT/CTA Chest W/WO Contrast IMPRESSION: Normal CTA chest examination, without a demonstrated pulmonary embolism or arterial dissection. Clear lungs. Electronically Signed: Massimo Tang MD at 21:45 EST Tel , Service support ,
[2020-07-10 19:15] LABS: Absolute Neutrophil Count 4.4 X10^3/uL (2.0-7.7); Basophil# 0.05 X10^3/uL; Basophil% 0.7 % (0-1); Eosinophil# 0.29 X10^3/uL; Hematocrit 39.6 % (37-47); Hemoglobin 13.2 g/dL (12.0-15.0); Lymphocyte % 27.4 % (19-41); Mean Corp Hgb Conc 33.3 g/dL (32-36); Mean Corpuscular Hgb 31.4 pg (27.0-32.0); Mean Corpuscular Volume 94.1 fL (81-99); Mean Platelet Vol. 10.4 fl (6.2-12.0); Monocyte# 0.49 X10^3/uL; Monocyte% 6.7 % (0-10); NRBC Flagged by Analyzer 0 % (0-5); Neutrophil # 4.43 X10^3/uL (2.7-7.7); Neutrophil % 60.7 % (47-70); Platelet Count 275 K/mm3 (150-450); RBC Distribution Width CV 12.1 % (11.6-14.6); RBC Distribution Width SD 41.9 fl (35.1-43.9); Red Blood Count 4.21 M/mm3 (4.2-5.4); White Blood Count 7.3 K/mm3 (4.4-11.0)
[2020-07-10 19:17] VITALS: BP 120/79; PULSE 82; RESP 18; O2SAT 98; O2SAT 99
[2020-07-10 19:23] LABS: Internal QC Validated? YES +Cl - CLEAR BKGD; Pregnancy, Serum, hCG Quali. NEGATIVE Negative
[2020-07-10 19:25] LABS: International Normalized Ratio 1.1; Prothrombin Time (Protime)PT. 13.4 SECONDS (11.7-14.9)
[2020-07-10 19:33] LABS: Anion Gap 6 (5-15); BUN 11 mg/dL (7-18); BUN/Creat Ratio 14.8 RATIO (10-20); Calcium,Total 8.5 mg/dL (8.5-10.1); Chloride 108 mmol/L (98-107); Creatinine, Serum 0.74 mg/dL (0.55-1.02); EST Glomerular Filtration Rate 99 mL/min (>60); Est Glom Filt Rate - Afr Amer 120 mL/min (>60); Estimated Creatinine Clearance 112.03 ml/min; Glucose 97 mg/dL (74-106); Potassium 3.4 mmol/L (3.5-5.1); Sodium Level 140 mmol/L (136-145)
[2020-07-10] MEDS: DiphenhydrAMINE 50 MG/ML Syringe 25 MG IV (19:55)
[2020-07-10] MEDS: MethylPREDNISolone 125 MG/2 ML Vial IV (19:55)
[2020-07-10 20:12] VITALS: BP 123/68; PULSE 78; RESP 17; TEMP 36.8; O2SAT 100
--- NOTE | 2020-07-10 22:23 | ED.DEP ---
ED Disposition - Plan for ED Patient: Instructions: ED Chest Pain, Uncertain Cause Referrals: Luba Yanez MD [Primary Care Provider] -
--- NOTE | 2020-07-10 22:28 | ED.DCSUM_ITS ---
- ER Visit Summary Date of Service: 07/10/20 Chief Complaint: Chest pain History of Present Illness: The patient is a 24 F presenting with chest pain and shortness of breath. Patient states this started yesterday. She is having intermittent sharp episodes of chest pain lasting a couple of minutes at a time. She is currently on Eliquis for PE diagnosed 1 month ago. She had Covid over Junior. The PE was felt to be related to estrogen use as well as post Covid. She states she was feeling well until yesterday. She then began having chest pain again. She denies fever, cough or other complaints. Physical Examination: Vitals are stable. Patient is afebrile. Alert no acute distress. HEENT exam is unremarkable. Neck is supple. Lungs are clear and equal bilaterally. Heart is regular rate and rhythm. Abdomen is soft nontender nondistended. Extremities are unremarkable. Skin is warm and dry. No focal neurologic deficit. Remainder of exam is unremarkable. Emergency Department Course and Treatment: EKG is sinus rhythm rate of 69 with no acute ischemic changes. Chest x-ray shows no acute process. CBC, chemistries unremarkable. hCG negative. Troponin is negative. Patient had itching in her throat following IV contrast previously. She was premedicated with Solu-Medrol and Benadryl. CTA chest was performed and shows normal CTA chest examination, without a demonstrated pulmonary embolism or arterial dissection. Clear lungs. On reevaluation she is resting comfortably. She has no itching, rash, throat tightness. Pharynx is normal with no edema. She is advised to take Tylenol as needed for pain. Advised to follow up with primary care physician. Advised return to ED for worsening complaints. Disposition: Discharge home Impression: Atypical chest pain This note was generated with [employer] dictation software. It may contain incorrect words, spelling, and punctuation that were not noted in review of the chart prior to signing ED Disposition - Plan for ED Patient: Instructions: ED Chest Pain, Uncertain Cause Referrals: Luba Yanez MD [Primary Care Provider] -
[2020-07-10 23:17] VITALS: BP 119/71; PULSE 87; RESP 18; O2SAT 100
== END 2020-07-10 23:18 | disposition home or self-care (01) ==
LOC: ED 19:15
PROVIDERS: Emergency Provider Emergency Medicine; PCP Internal Medicine
DX: R07.89 Other chest pain (principal); R06.00 Dyspnea, unspecified; Z86.711 Personal history of pulmonary embolism; Z86.16 Personal history of COVID-19; Z79.01 Long term (current) use of anticoagulants
CPT/HCPCS: 71045; 71275; 80048; 84484; 84703; 85025; 85610; 93005; 96374; 96375; 99284; Q9967; A4216

== ENCOUNTER 2021-04-22 19:22 | Emergency (ER) | payer BC, MEDICAID, SELFPAY ==
[2021-04-22 19:23] VITALS: BP 130/92; PULSE 72; RESP 15; TEMP 35.8; O2SAT 98; BMI 21.1
[2021-04-22 19:25] VITALS: O2SAT 99
--- NOTE | 2021-04-22 20:01 | EKG12_ITS ---
Test Reason : CP Blood Pressure : / mmHG Vent. Rate : 062 BPM Atrial Rate : 062 BPM P-R Int : 134 ms QRS Dur : 090 ms QT Int : 410 ms P-R-T Axes : -16 056 040 degrees QTc Int : 416 ms Normal sinus rhythm Normal ECG Confirmed by MISAEL LINDSEY MD ([id number]), fashion editor KAYCEE MONAE ([id number]) on 04/23/2021 1:14:06 PM Also confirmed by MISAEL LINDSEY MD ([id number]), fashion editor KEATON KEY ([id number]) on 04/23/2021 1:22:42 PM Referred By: EDEL BODY Confirmed By:MISAEL LINDSEY MD
--- NOTE | 2021-04-22 20:21 | ED.RN ---
EKG WAS DONE, PT IS RESTING AND TEXTING ON HER PHONE. NO DISTRESS NOTED. FAMILY AT BEDSIDE. PT SENT BACK TO THE HALLWAY TO WAIT FOR A BED TO OPEN UP
--- NOTE | 2021-04-22 22:15 | ED.VIS.DYS ---
HPI History of Present Illness Chief Complaint: Shortness of Breath Informant: patient Narrative Narrative: Patient presents for evaluation worsening dyspnea with exertion over the past week. Mild nonproductive cough. Mild headache. She reports feels similar to her PE this past year. She was taken off her anticoagulant in November after 7 months treatment. She states she was on oral contraceptives and had Covid pre her diagnosis of her PE. She is currently not on any oral contraceptives. Denies tobacco history. She states had Covid testing the second day which was negative. Denies any loss of taste or smell. No vomiting or diarrhea. She has not been vaccinated. Currently on her menstrual period. Denies any chest pains. Reports today had a PCR Covid testing sent out by her PCP. PE Risk Factors: Positive for Prior DVT or PE Prior similar symptoms: Yes PFSH PFSH Medical History Asthma Depression Pulmonary embolism Home Medications NK 04/22/21 [History Last Taken Unknown] Allergy/AdvReac Type Severity Reaction Status Date / Time Iodinated Contrast Media Allergy Other Verified 04/22/21 19:25 [CONTRASTS] Social History Smoking Status: Never smoker ROS ROS ED Constitutional Constitutional ED: Denies chills, fever(s) or sweats Eyes Eyes: Denies change in vision ENT ENT ED: Denies dysphagia or sore throat Cardiovascular Cardiovascular: Denies chest pain, leg edema, palpitations or racing heartbeat Respiratory/Chest Respiratory/Chest: Reports cough, dyspnea and dyspnea on exertion Gastrointestinal Gastrointestinal: Denies abdominal pain, diarrhea, nausea or vomiting Genitourinary Genitourinary ED: Denies dysuria, hematuria or urinary frequency Musculoskeletal Musculoskeletal: Denies back pain, extremity pain or neck pain Integumentary Denies rash or wounds Neurologic Neurologic: Reports headache(s); Denies paresthesias or weakness EXAM Physical Exam Const Vital Signs: 04/22/21 19:23 04/22/21 19:25 04/22/21 22:10 Temperature 96.5 F L Temperature Source Temporal Pulse Rate 72 Respiratory Rate 15 Respiratory Effort Normal Non-Labored Short of Breath Respiratory Depth Normal Normal Respiratory Pattern Normal Normal Blood Pressure 130/92 H Blood Pressure Mean 104 Pulse Ox 98 Oxygen Delivery Method Room Air Room Air 04/22/21 22:12 04/22/21 23:58 Temperature Temperature Source Pulse Rate 61 Respiratory Rate 19 H Respiratory Effort Short of Breath Respiratory Depth Respiratory Pattern Blood Pressure 109/73 Blood Pressure Mean Pulse Ox 99 Oxygen Delivery Method Positive well nourished and well developed General Appearance ED: well developed and NAD HEENT Reports moist mucous membranes normocephalic and atraumatic Eyes PERRL, EOMs intact bilaterally and conjunctivae normal General Eye ED: Yes normal appearance of both eyes Neck no lymphadenopathy and supple General: Negative for tenderness Chest Wall Chest: Negative for tenderness Resp normal respiratory effort and normal air movement Effort and Inspection: symmetric chest movement; Negative for respiratory distress Cardio regular rate, regular rhythm and no murmurs Peripheral Pulses: pulses 2+ throughout GI normal to inspection, nondistended, normoactive bowel sounds and non-tender Palpation: Negative for guarding or rebound tenderness present Back/Spine no CVA tenderness and no thoracic nor lumbar tenderness Extremity normal to inspection General Extremety ED: Negative for edema or tenderness General Extremity: Negative for edema Neuro oriented x3 and no sensory deficits noted Sensorium / Orientation: awake and alert Skin no rashes or lesions noted and no wounds MDM MDM MDM Narrative Medical decision making narrative: Patient vital signs all stable. Low risk Wells criteria secondary to history of PE. Reported symptoms felt similar. Labs obtain normal D-dimer negative. Chest x-ray 1 view reviewed by myself shows no acute process. She is reassured. She'll monitor symptoms. Patient requested rapid Covid testing due to reporting to nursing a CT scan is ordered as an outpatient tomorrow. She has a PCR pending. This was ordered for further testing to be followed up as an outpatient. All questions were answered. Patient is being discharged under pandemic conditions under declared global, national and state disaster activation, with limited medical resources. Patient and community understands this. Results discussed in layman's terms to the patient satisfaction. All questions answered in layman's terms. Patient understands importance of follow-up care as directed. Patient has been instructed to return to the ED immediately if new symptoms, problems, or questions occur. We mutually agree with the plan of disposition. The patient understand that they may call or return with any questions or concerns at any time. Lab Data Attestation: I reviewed the patient's lab results. Labs: Laboratory Results - last 24 hr 04/22/21 04/22/2104/22/21 22:08 22:08 22:08 WBC 8.3 RBC 4.53 Hgb 14.2 Hct 42.2 MCV 93.2 MCH 31.3 MCHC 33.6 RDW Std Deviation 41.5 RDW Coeff of Hong 12.0 Plt Count 295 MPV 10.2 Immature Gran % (Auto) 0.500 Neut % (Auto) 57.3 Lymph % (Auto) 32.7 [place] % (Auto) 6.1 Eos % (Auto) 2.8 Baso % (Auto) 0.6 Absolute Neuts (auto) 4.8 Absolute Lymphs (auto) 2.72 Nucleated RBC % 0 D-Dimer Quant (PE/DVT) <= 0.27 Sodium 140 Potassium 3.6 Chloride 108 H Carbon Dioxide 28.0 Anion Gap 4 L BUN 14 Creatinine 0.59 Estim Creat Clear Calc 138.46 Est GFR (MDRD) Af Amer 158 Est GFR (MDRD) Non-Af 130 BUN/Creatinine Ratio 23.9 H Glucose 95 Calcium 8.9 Total Bilirubin 0.50 AST 11 L ALT 19 Alkaline Phosphatase 84 Total Protein 7.3 Albumin 4.0 Globulin 3.3 Albumin/Globulin Ratio 1.2 Serum , Qual 04/22/21 22:08 WBC RBC Hgb Hct MCV MCH MCHC RDW Std Deviation RDW Coeff of Hong Plt Count MPV Immature Gran % (Auto) Neut % (Auto) Lymph % (Auto) [place] % (Auto) Eos % (Auto) Baso % (Auto) Absolute Neuts (auto) Absolute Lymphs (auto) Nucleated RBC % D-Dimer Quant (PE/DVT) Sodium Potassium Chloride Carbon Dioxide Anion Gap BUN Creatinine Estim Creat Clear Calc Est GFR (MDRD) Af Amer Est GFR (MDRD) Non-Af BUN/Creatinine Ratio Glucose Calcium Total Bilirubin AST ALT Alkaline Phosphatase Total Protein Albumin Globulin Albumin/Globulin Ratio Serum , Qual NEGATIVE Radiography Diagnostic Testing: Clinical Impression(s) from Imaging Studies Chest X-Ray 04/22/21 23:08 IMPRESSION: No radiographic evidence of acute cardiopulmonary disease. at 2340 Reported and signed by: Perry Guerra MD Electronically Signed: Perry Guerra MD at 23:39 EST Tel , Service support , EKG Initial EKG: Attestation: I personally reviewed and interpreted this EKG as follows: Comments: Sinus rate of 62, no ST changes. Follow-up Discharge Plan Triage Chief Complaint: Shortness of Breath ED Provider: Rusty Prasad Dx/Rx/DC Orders Clinical Impression: URI (upper respiratory infection), Acute dyspnea Instructions: ED Dyspnea, ED URI, Viral, No Abx (Adult) Prescriptions: No Action NK RF: 0 Primary Care Provider: Luba Yanez Referrals: Luba Yanez MD [Primary Care Provider] - 3-5 Days Activity Restrictions/Additional Instructions: Chest x-ray negative. D-dimer labs normal. Monitor symptoms. Follow-up with your doctor. Disposition Disposition: Home, Self Care Discharge Date/Time: 04/23/21 00:02
[2021-04-22 22:20] LABS: Absolute Lymphocyte Count 2.72 X10^3/uL (0.83-4.51); Absolute Neutrophil Count 4.8 X10^3/uL (2.0-7.7); Basophil# 0.05 X10^3/uL; Basophil% 0.6 % (0-1); Eosinophil# 0.23 X10^3/uL; Eosinophils% 2.8 % (0-5); Hematocrit 42.2 % (37-47); Hemoglobin 14.2 g/dL (12.0-15.0); Lymphocyte # 2.72 X10^3/ul (0.83-4.51); Lymphocyte % 32.7 % (19-41); Mean Corp Hgb Conc 33.6 g/dL (32-36); Mean Corpuscular Hgb 31.3 pg (27.0-32.0); Mean Corpuscular Volume 93.2 fL (81-99); Mean Platelet Vol. 10.2 fl (6.2-12.0); Monocyte# 0.51 X10^3/uL; Monocyte% 6.1 % (0-10); NRBC Flagged by Analyzer 0 % (0-5); Neutrophil # 4.78 X10^3/uL (2.7-7.7); Neutrophil % 57.3 % (47-70); Platelet Count 295 K/mm3 (150-450); RBC Distribution Width SD 41.5 fl (35.1-43.9); Red Blood Count 4.53 M/mm3 (4.2-5.4); White Blood Count 8.3 K/mm3 (4.4-11.0)
[2021-04-22 22:28] LABS: Internal QC Validated? YES +Cl - CLEAR BKGD; Pregnancy, Serum, hCG Quali. NEGATIVE Negative
[2021-04-22 22:36] LABS: ALB/GLOB Ratio 1.2 RATIO (0.9-2.4); AST(SGOT) 11 U/L (15-37); Alanine Aminotransfer ALT/SGPT 19 U/L (13-56); Alkaline Phosphatase 84 U/L (45-117); Anion Gap 4 (5-15); BUN 14 mg/dL (7-18); BUN/Creat Ratio 23.9 RATIO (10-20); Calcium,Total 8.9 mg/dL (8.5-10.1); Chloride 108 mmol/L (98-107); Creatinine, Serum 0.59 mg/dL (0.55-1.02); EST Glomerular Filtration Rate 130 mL/min (>60); Est Glom Filt Rate - Afr Amer 158 mL/min (>60); Estimated Creatinine Clearance 138.46 ml/min; Globulin 3.3 g/dL (2.2-4.2); Glucose 95 mg/dL (74-106); Potassium 3.6 mmol/L (3.5-5.1); Protein, Total 7.3 g/dL (6.4-8.2); Sodium Level 140 mmol/L (136-145)
[2021-04-22 22:51] LABS: D-Dimer Quantitative (DVT/PE) <= 0.27 FEU/ug/m (0.27-0.49)
--- NOTE | 2021-04-22 23:08 | RAD_ITS ---
EXAM: XR CHEST, 1 VIEW : 1995 CLINICAL INDICATION: sob TECHNIQUE: Frontal view of the chest. This report was created using [employer] report generation technology. COMPARISON: 07/10/20 FINDINGS: LUNGS AND PLEURAL SPACES: Unremarkable. No consolidation or edema. No pneumothorax. No effusion. HEART: Unremarkable. Cardiac silhouette not enlarged. MEDIASTINUM: Central airways and mediastinal contour are unremarkable. BONES/JOINTS: Unremarkable. SOFT TISSUES: Unremarkable. RAD/Chest 1 View (Portable) IMPRESSION: No radiographic evidence of acute cardiopulmonary disease. at 2340 Reported and signed by: Perry Guerra MD Electronically Signed: Perry Guerra MD at 23:39 EST Tel , Service support ,
[2021-04-22 23:58] VITALS: BP 109/73; PULSE 61; RESP 19; O2SAT 99
== END 2021-04-23 00:02 | disposition home or self-care (01) ==
PROVIDERS: Emergency Provider Emergency Medicine; PCP Internal Medicine
DX: J06.9 Acute upper respiratory infection, unspecified (principal); R06.00 Dyspnea, unspecified; J45.909 Unspecified asthma, uncomplicated; Z86.711 Personal history of pulmonary embolism
CPT/HCPCS: 71045; 80053; 84703; 85025; 85379; 87426; 93005; 99285; A4216

== ENCOUNTER → 2023-11-18 | Outpatient (CLI) | payer OTHER, SELFPAY ==
--- NOTE | 2023-11-18 15:22 | VDLE_ITS ---
Reason For Study: BLE pain RIGHT LEFT GSV is normal. GSV is normal. CFV is compressible, spontaneous, phasic, CFV is compressible, spontaneous, phasic, competent and demonstrates normal competent, and demonstrates normal augmentation. augmentation. FV is compressible, spontaneous, phasic, FV is compressible, spontaneous, phasic, competent and demonstrates normal competent and demonstrates normal augmentation. augmentation. POP V is compressible, spontaneous, phasic, POP V is compressible, spontaneous, phasic, competent and demonstrates normal competent and demonstrates normal augmentation. augmentation. T/P Trunk is compressible. T/P Trunk is compressible. PTV is compressible. PTV is compressible. RT PerV is compressible. LT PerV is compressible. Procedure This is a venous duplex using B-mode, color flow and spectral Doppler. Exam performed in department. The exam was diagnostic. A preliminary report was called and/or faxed to Tatiana MILTON. VL/Venous Duplex US - Blake Extrem Interpretation Summary Deep veins of the lower extremities are bilaterally patent and compressible seg mentally. There is no evidence of deep vein thrombosis on either side. Valvular competence appears in tact within the proximal deep venous systems bilaterally. The great saphenous veins appear bila terally patent and compressible segmentally. Ordering Physician: TATIANA MCKNIGHT Performed By: Dexter Raya RVT
== END | disposition home or self-care (01) ==
PROVIDERS: PCP Internal Medicine; Referring Provider Nurse Practitioner; Visit Provider Nurse Practitioner
DX: M79.605 Pain in left leg (principal); M79.604 Pain in right leg; R79.89 Other specified abnormal findings of blood chemistry; Z86.718 Personal history of other venous thrombosis and embolism
CPT/HCPCS: 93970

== ENCOUNTER → 2024-11-14 | Outpatient (CLI) | payer BC, SELFPAY ==
--- NOTE | 2024-11-14 14:55 | CT_ITS ---
PROCEDURE: CTA CHEST W/WO CONTRAST 11/14/2024 REASON FOR EXAM: SOB, PE SUSPECTED TECHNIQUE: CTA CHEST W/WO CONTRAST Multiplanar Sagittal and Coronal images were obtained. CONTRAST: Isovue 370 VOLUME: 100 mL One or more dose reduction techniques were used (e.g., Automated exposure control, adjustment of the mA and/or kV according to patient size, use of iterative reconstruction technique). RADIATION DOSE SUMMARY: CTDlvol: 10.9 mGy DLP: 409.79 mGycm COMPARISON: None FINDINGS: Hardware: None Lymph nodes: None Heart: The heart is not enlarged. No coronary artery calcification. Thoracic Aorta: No thoracic aortic aneurysm or dissection. Pulmonary Vessels: No evidence of pulmonary embolism. Lungs and Airways: No acute infiltrate is seen. Pleura: No pleural effusion. Upper Abdomen: Unremarkable. Bones: Bone windows are unremarkable. CT/CTA Chest W/WO Contrast IMPRESSION: NORMAL CHEST CTA. NO EVIDENCE OF ACUTE PULMONARY EMBOLISM. Reading Location: [place] [id number]
== END | disposition home or self-care (01) ==
LOC: CT 14:49
PROVIDERS: PCP Internal Medicine; Referring Provider Internal Medicine; Visit Provider Internal Medicine
DX: R06.02 Shortness of breath (principal)
CPT/HCPCS: 71275; Q9967